=== PATIENT | female | born 1985 | race Caucasian/White ===

== ENCOUNTER 2018-02-24 15:16 | Inpatient (IN) ==
[2018-02-24 16:08] LABS: Basophils % 0.4 %; Eosinophils % 0.1 %; Hematocrit 37.5 % (35.3-44.9); Hemoglobin 13.3 g/dL (11.5-15.4); Immature Granulocytes % 0.3 % (0-4); Lymphocytes # 3.4 K/mcL (0.6-4.6); Lymphocytes % 49.4 %; Mean Corpuscular HGB Conc 35.5 g/dL (31.6-35.5); Mean Corpuscular Hemoglobin 33.1 pg (28.0-33.3); Mean Corpuscular Volume 93.3 fL (83.0-100.0); Mean Platelet Volume 9.9 fL (9.4-12.4); Monocytes # 0.3 K/mcL (0.0-1.3); Monocytes % 4.1 %; Neutrophils # 3.1 K/mcL (1.6-8.9); Platelet Count 292 K/mcL (140-400); Red Blood Count 4.02 M/mcL (3.82-4.97); Red Cell Distribution Width 13.9 % (11.5-14.5); Segmented Neutrophils % 45.7 %
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
[2018-02-24 16:20] LABS: Prothrombin Time 11.7 Seconds (9.4-12.1)
[2018-02-24 16:22] LABS: Activated Partial Thrombo Time 31.3 Seconds (26.0-36.0)
[2018-02-24 16:36] LABS: Troponin I < 0.03 ng/mL (< 0.04)
[2018-02-24 16:44] LABS: BUN/Creatinine Ratio 9 (6-26); Blood Urea Nitrogen 7 mg/dL (6-20); Calcium 10.1 mg/dL (8.6-10.3); Carbon Dioxide 21 mEq/L (23-29); Chloride 104 mEq/L (98-107); Glucose 127 mg/dL (70-105); Magnesium 1.6 mg/dL (1.6-2.6); Osmolality,Calculated 284 (280-300); Potassium 3.3 mEq/L (3.5-5.1); Sodium 137 mEq/L (136-145); eGFR For African Americans > 60 (> 60); eGFR For Non-African Americans > 60 (> 60)
[2018-02-24 16:49] LABS: Thyroid Stimulating Hormone 2.552 mcIU/mL (0.340-5.600)
[2018-02-24] MEDS ORDERED: Potassium Chloride Elixir 20 MEQ/15 ML UDC PO ONE (16:58)
[2018-02-24 16:59] LABS: Bilirubin,Urine Negative (Negative); Blood,Urine Negative (Negative); Clarity,Urine Clear (Clear); Color,Urine Yellow (Yellow); Glucose,Urine (UA) Normal (Normal); Ketones,Urine Negative (Negative); Leukocyte Esterase,Urine Negative (Negative); Nitrite,Urine Negative (Negative); Protein,Urine Negative (Neg-Trace); Specific Gravity,Urine 1.007 (1.010-1.025); Urobilinogen,Urine Normal (Normal)
[2018-02-24 17:18] LABS: Amphetamine Screen,Urine Negative ng/mL (Cutoff=1000); Barbiturate Screen,Urine Negative ng/mL (Cutoff=200); Benzodiazepines Screen,Urine Negative ng/mL (Cutoff=200); Cannabinoid Screen,Urine Positive ng/mL (Cutoff = 50); Cocaine Screen,Urine Negative ng/mL (Cutoff= 300); Opiate Screen,Urine Negative ng/mL (Cutoff=300); Phencyclidine Screen,Urine Negative ng/mL (Cutoff=25)
[2018-02-24] MEDS ORDERED: Magnesium Oxide 400 MG TABLET PO ONE (17:43)
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
[2018-02-24] MEDS ORDERED: Naloxone 0.4 MG/ML INJ IVP PRN (18:09)
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
[2018-02-24] MEDS ORDERED: Ondansetron ODT 4 MG TAB.RAPDIS PO PRN (20:52)
[2018-02-24] MEDS ORDERED: SUMAtriptan succinate 50 MG TABLET PO PRN (20:52)
[2018-02-24] MEDS ORDERED: NON-FORMULARY MEDICATION 1 EACH EACH (Quetiapine Fumarate [Seroquel] 800 MG) PO SCH (21:00)
[2018-02-24] MEDS: Gabapentin 300 MG CAPSULE PO SCH (22:03)
[2018-02-24] MEDS: Cholecalciferol (D-3) 1,000 UNIT TABLET PO SCH (22:03)
[2018-02-24] MEDS: traMADol 50 MG TABLET PO PRN (22:03)
[2018-02-24] MEDS ORDERED: Acetaminophen 325 MG TABLET PO PRN (23:02)
[2018-02-24] MEDS: Methocarbamol 500 MG TABLET PO SCH (23:19)
[2018-02-24] MEDS ORDERED: Nitroglycerin 0.4 MG TAB.SUBL SL PRN (23:40)
[2018-02-24] MEDS ORDERED: Nitroglycerin 0.4 MG TAB.SUBL SL ONE (23:41)
[2018-02-25] MEDS ORDERED: *HR* Adenosine 6 MG/2 ML VIAL IVP ONE ×5 (00:05→02:13)
[2018-02-25] MEDS ORDERED: Verapamil 5 MG/2 ML VIAL IVP ONE (00:37)
[2018-02-25] MEDS: Albuterol 2.5 MG/3 ML NEBULIZER IH SCH ×3 (01:32→20:04)
[2018-02-25] MEDS: Budesonide/Formoterol 160/4.5 MDI IH SCH ×3 (01:33→20:04)
[2018-02-25] MEDS: Ringers Solution, Lactated 1,000 ML IVC SCH ×2 (01:45→15:16)
--- NOTE | 2018-02-25 01:46 | Event Note ---
Date of Encounter: 02/25/18 Time of Encounter: 11:30 At about 11:40PM was alerted by nurse that patient's heart rate was 160, and I came to bedside immediately. EKG was ordered which showed SVT. Vagal maneuvers tried without success and lowering her HR. Rapid response was called. She was given adenosine 6 mg, patient's heart rate decreased to 120s showed sinus tachycardia but within 30 seconds went back up to HR 160s. BP was stable with a systolic of 132. She was given adenosine 12 mg and the same thing occurred. Dr. Lennon from Cardiology was called. In the meantime patient's heart rate did decrease to 120s for a couple of minutes then increased back to 160s. Cardiology recommended getting verapamil 5 mg which initially seemed to not help but after about 5-10 minutes she did decrease to 120s. She was given a 15mg cardizem bolus and started on a cardizem drip per cardiology's recommendation. Blood pressure remained stable throughout this event and last reported systolic BP after the cardizem bolus was 108. Patient was then transferred to the ICU overflow at about 1:30AM with a heart rate in the 120s.
[2018-02-25 04:45] LABS: Basophils % 0.4 %; Eosinophils % 0.3 %; Hematocrit 34.3 % (35.3-44.9); Hemoglobin 12.1 g/dL (11.5-15.4); Immature Granulocytes % 0.3 % (0-4); Lymphocytes # 2.9 K/mcL (0.6-4.6); Lymphocytes % 39.4 %; Mean Corpuscular HGB Conc 35.3 g/dL (31.6-35.5); Mean Corpuscular Hemoglobin 33.3 pg (28.0-33.3); Mean Corpuscular Volume 94.5 fL (83.0-100.0); Mean Platelet Volume 9.6 fL (9.4-12.4); Monocytes # 0.4 K/mcL (0.0-1.3); Monocytes % 6.1 %; Neutrophils # 3.9 K/mcL (1.6-8.9); Platelet Count 235 K/mcL (140-400); Red Blood Count 3.63 M/mcL (3.82-4.97); Red Cell Distribution Width 13.9 % (11.5-14.5); Segmented Neutrophils % 53.5 %
[2018-02-25 05:05] LABS: Troponin I < 0.03 ng/mL (< 0.04)
[2018-02-25 05:07] LABS: BUN/Creatinine Ratio 14 (6-26); Blood Urea Nitrogen 9 mg/dL (6-20); Calcium 9.4 mg/dL (8.6-10.3); Carbon Dioxide 24 mEq/L (23-29); Chloride 109 mEq/L (98-107); Chol/HDL Ratio 7.4 (0-4.9); Cholesterol 272 mg/dL (< 200); Glucose 91 mg/dL (70-105); HDL Cholesterol 37 mg/dL (40-59); LDL Cholesterol,Calculated 208 mg/dL (0-99); Osmolality,Calculated 286 (280-300); Potassium 3.7 mEq/L (3.5-5.1); Sodium 139 mEq/L (136-145); Triglycerides 134 mg/dL (< 150); eGFR For African Americans > 60 (> 60); eGFR For Non-African Americans > 60 (> 60)
[2018-02-25] MEDS: *HR* Heparin 5,000 UNIT/ML VIAL SQ SCH ×2 (05:43→17:53)
[2018-02-25] MEDS: traMADol 50 MG TABLET PO PRN ×2 (08:10→15:41)
[2018-02-25] MEDS: Multivit/Ca/Min/Fe/FA 1 TAB TABLET PO SCH (08:12)
[2018-02-25] MEDS: Acyclovir 200 MG CAPSULE PO SCH (08:12)
[2018-02-25] MEDS: Gabapentin 300 MG CAPSULE PO SCH ×3 (08:12→22:21)
[2018-02-25] MEDS: Cholecalciferol (D-3) 1,000 UNIT TABLET PO SCH (08:12)
[2018-02-25] MEDS ORDERED: NORETHINDRONE ETHINYL ESTRAD PO SCH (09:00)
[2018-02-25] MEDS ORDERED: levoFLOXacin 500 MG TABLET PO SCH (09:00)
[2018-02-25] MEDS ORDERED: (Omega-3/Dha/Epa/Fish Oil [Fish Oil 1,000 Mg Softgel] PO SCH (09:00)
--- NOTE | 2018-02-25 10:13 | Cardiology Consult Note ---
<Anthony Guevara - Last Filed: 02/25/18 10:13> Date of Encounter: 02/25/18 Time of Encounter: 10:13 Assessment and Plan Discussion w patient/family: The assessment and plan as outlined above was discussed with the patient and/or family members who expressed understanding and agreement. All questions were answered. Thank you for involving us in the care of your patient. Please call with any questions. History of Present Illness History of present illness: Ms. Lainez is a 32 year old female Past Med Surg Social Fam HX - Past Medical History Medical history: asthma, COPD, GERD, hyperlipidemia, migraine Additional medical history: Crohn's Psychiatric history: anxiety, bipolar, depression, PTSD - Past Surgical History Surgical History: breast surgery, cancer surgery Additional surgical history: Dental. IUD removed. cyst left groin - Social History Smoking Status: Current every day smoker Smokeless Tobacco Status: No Alcohol use: none Drug use: marijuana Medications and Allergies Norethindrone-Ethinyl Estrad [Ortho-Novum 1-35-28 Tablet] 1 each PO DAILY [History] Ondansetron HCl [Zofran] 4 mg PO TID PRN 01/28/17 [History] levoFLOXacin [Levaquin] 500 mg PO DAILY #9 tablet 02/22/18 [Rx] Acyclovir [Zovirax] 200 mg PO DAILY 02/24/18 [History] Albuterol Neb [Proventil Neb] 2.5 mg IH BID 02/24/18 [History] Albuterol Sulfate [Albuterol Inhaler] 2 puff IH Q4HR PRN 02/24/18 [History] Budesonide/Formoterol 160/4.5 [Symbicort 160/4.5] 2 puff IH BIDR 02/24/18 [ History] Ergocalciferol (VITAMIN D2) [Vitamin D2] 50,000 unit PO QWEEK 02/24/18 [History] Gabapentin [Neurontin] 900 mg PO TID 02/24/18 [History] Methocarbamol [Robaxin] 500 mg PO HS 02/24/18 [History] Montelukast [Singulair] 10 mg PO DAILY 02/24/18 [History] Multivitamin [One Daily Essential] 1 tab PO DAILY 02/24/18 [History] Naproxen [Naprosyn] 500 mg PO BID 02/24/18 [History] [place]-3/Dha/Epa/Fish Oil [Fish Oil 1,000 mg Softgel] 1 cap PO DAILY 02/24/18 [ History] Quetiapine Fumarate [Seroquel] 800 mg PO HS 02/24/18 [History] SUMAtriptan Succinate [Imitrex] 6 mg SQ DAILY PRN 02/24/18 [History] SUMAtriptan Succinate [Imitrex] 100 mg PO DAILY PRN 02/24/18 [History] Tramadol HCl [Ultram] 100 mg PO TID PRN 02/24/18 [History] 3 Allergy/AdvReac Type Severity Reaction Status Date / Time Erythromycin Base AdvReac Nausea Verified 02/24/18 18:24 latex AdvReac Hives Verified 02/24/18 18:24 All Systems Review: The remainder of the systems were reviewed and are negative Physical Examination Vital Signs, Last 4 Hours Temp Pulse Resp BP Pulse Ox 02/25/18 08:27 91 106/61 100 02/25/18 08:13 98.5 F 02/25/18 07:50 12 100 Results 02/25/18 04:27 02/25/18 04:27 Lab Results 02/24/18 02/25/18 02/25/18 21:51 00:27 04:27 WBC 7.3 Hgb 12.1 Hct 34.3 L Plt Count 235 Sodium Potassium Chloride Carbon Dioxide BUN Creatinine Glucose Calcium Magnesium Troponin I < 0.03 < 0.03 02/25/18 04:27 WBC Hgb Hct Plt Count Sodium 139 Potassium 3.7 Chloride 109 H Carbon Dioxide 24 BUN 9 Creatinine 0.65 Glucose 91 Calcium 9.4 Magnesium 2.0 Troponin I < 0.03 Consult Discharge Plan - Plan [facility]errals: [facility] Care Provider[facility] - <Douglas Funk - Last Filed: 02/25/18 10:52> Date of Encounter: 02/25/18 - Attending Attestation I examined this patient and my medical decision-making was reviewed with the Resident Physician. I agree with the documented findings, disposition and treatment plan as described except to the extent set forth below. Consulted for SVT. EKGs suggest sinus tachycardia. Would evaluate for secondary etiology. Could treat symptomatically with cardizem if no secondary causes found. Assessment and Plan Discussion w patient/family: The assessment and plan as outlined above was discussed with the patient and/or family members who expressed understanding and agreement. All questions were answered. Thank you for involving us in the care of your patient. Please call with any questions. History of Present Illness History of present illness: Ms. Lainez is a 32 year old female All Systems Review: The remainder of the systems were reviewed and are negative Physical Examination Vital Signs, Last 4 Hours Temp Pulse Resp BP Pulse Ox 02/25/18 08:27 91 106/61 100 02/25/18 08:13 98.5 F 02/25/18 07:50 12 100 Results 02/25/18 04:27 02/25/18 04:27 Lab Results 02/24/18 02/25/18 02/25/18 21:51 00:27 04:27 WBC 7.3 Hgb 12.1 Hct 34.3 L Plt Count 235 Sodium Potassium Chloride Carbon Dioxide BUN Creatinine Glucose Calcium Magnesium Troponin I < 0.03 < 0.03 02/25/18 04:27 WBC Hgb Hct Plt Count Sodium 139 Potassium 3.7 Chloride 109 H Carbon Dioxide 24 BUN 9 Creatinine 0.65 Glucose 91 Calcium 9.4 Magnesium 2.0 Troponin I < 0.03
--- NOTE | 2018-02-25 13:50 | Consult Note ---
Date of Encounter: 02/25/18 Time of Encounter: 13:44 Assessment & Recommendation (1) Generalized anxiety disorder Current visit: Yes Status: Acute Assessment & Recommendation: Would not change psych meds until cardiac diagnosis is clear. According to client she has not yet seen the Qm Consultant or gotten the results of her ultrasound. Suspect she has an underlying anxiety disorder in addition to whatever is going on with her medically. However, Seroquel seems to work for her normally. She can likely just return to this medication once her cardiac issues have been dealt with. Can assess her for a new medication as well but would not feel comfortable starting her on something new until the source of her tachycardia is found. Client denies SI/HI. No evidence of psychosis or major mood disturbance. Does not require inpatient psych. History of Present Illness Requesting Physician: Gaby Murphy MD Reason for consult: extreme anxiety History of present illness: Ms. Lainez is a 32 year old female who was admitted secondary to bouts of tachycardia and associated symptoms. 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 Diagnosis unclear. Awaiting Cardiology input and results of ultrasound. Currently takes 800mg of Seroquel for Bipolar Disorder. Client states this medication keeps her stabilized from a mental health prospective. However, client feels this medication is making her heart race faster. Has been on this medication at this dose for at least a year with no issues. Doubt it is a factor in current presentation but client states she is not comfortable taking it until she has a definitive diagnosis. Would not recommend starting any new psych meds either until she has a definitive diagnosis. Client denies SI/HI. No evidence of psychosis or thought disorder. No need for inpatient psych. Anxiety is definitely a factor but would only try to manage it with new medications after serious cardiac issues ruled out. CC: Gaby Murphy MD Past Med Surg Social Fam HX - Past Medical History Medical history: asthma, COPD, GERD, hyperlipidemia, migraine - Past Psychiatric History Psychiatric history: Reports: anxiety, bipolar Family psychiatric history: Unknown Family History of Suicide: Unknown - Past Surgical History Surgical History: breast surgery, cancer surgery - Social History Smoking Status: Current every day smoker Smokeless Tobacco Status: No Alcohol use: none Drug use: marijuana Medications & Allergies Norethindrone-Ethinyl Estrad [Ortho-Novum 1-35-28 Tablet] 1 each PO DAILY [History] Ondansetron HCl [Zofran] 4 mg PO TID PRN 01/28/17 [History] levoFLOXacin [Levaquin] 500 mg PO DAILY #9 tablet 02/22/18 [Rx] Acyclovir [Zovirax] 200 mg PO DAILY 02/24/18 [History] Albuterol Neb [Proventil Neb] 2.5 mg IH BID 02/24/18 [History] Albuterol Sulfate [Albuterol Inhaler] 2 puff IH Q4HR PRN 02/24/18 [History] Budesonide/Formoterol 160/4.5 [Symbicort 160/4.5] 2 puff IH BIDR 02/24/18 [ History] Ergocalciferol (VITAMIN D2) [Vitamin D2] 50,000 unit PO QWEEK 02/24/18 [History] Gabapentin [Neurontin] 900 mg PO TID 02/24/18 [History] Methocarbamol [Robaxin] 500 mg PO HS 02/24/18 [History] Montelukast [Singulair] 10 mg PO DAILY 02/24/18 [History] Multivitamin [One Daily Essential] 1 tab PO DAILY 02/24/18 [History] Naproxen [Naprosyn] 500 mg PO BID 02/24/18 [History] [place]-3/Dha/Epa/Fish Oil [Fish Oil 1,000 mg Softgel] 1 cap PO DAILY 02/24/18 [ History] Quetiapine Fumarate [Seroquel] 800 mg PO HS 02/24/18 [History] SUMAtriptan Succinate [Imitrex] 6 mg SQ DAILY PRN 02/24/18 [History] SUMAtriptan Succinate [Imitrex] 100 mg PO DAILY PRN 02/24/18 [History] Tramadol HCl [Ultram] 100 mg PO TID PRN 02/24/18 [History] 3 Allergy/AdvReac Type Severity Reaction Status Date / Time Erythromycin Base AdvReac Nausea Verified 02/24/18 18:24 latex AdvReac Hives Verified 02/24/18 18:24 Review of Systems Constitutional: Denies: fever, chills, weakness, weight change Eyes: Denies: eye pain, vision change Ears, Nose, Throat: Denies: ear pain, throat pain, dental pain, hearing loss, congestion Cardiovascular: Reports: palpitations Respiratory: Denies: cough, dyspnea, wheezes Gastrointestinal: Denies: abdominal pain, nausea, vomiting, diarrhea, constipation Genitourinary female: Denies: urgency, dysuria, frequency, abnormal menses, dyspareunia Musculoskeletal: Denies: joint swelling, joint pain Integumentary: Denies: rash, lesions, pruritus Neurological: Denies: headache, weakness, numbness, memory loss Endocrine: Denies: fatigue, heat or cold intolerance Hematologic/Lymphatic: Denies: easy bruising, lymphadenopathy Allergic/Immunologic: Denies: urticaria, itchy eyes Psychiatry Exam - Constitutional Vitals: Temp Pulse Resp BP Pulse Ox 98.1 F 86 14 114/71 98 02/25/18 11:42 02/25/18 13:00 02/25/18 13:00 02/25/18 13:00 02/25/18 13:00 General appearance: age & developmentally appropriate, well-groomed, well- nourished - Musculoskeletal Gait: normal Station: relaxed Strength & Tone: normal for patient - Psychiatric Patient Orientation: Yes Person, Yes Time, Yes Place Level of alertness: Alert Behavior: calm, cooperative Psychomotor activity: Normal Eye Contact: Maintains Eye Contact Mood Description: Anxious Affect description: congruent with mood Speech Volume: Normal Speech pattern: normal rate, normal rhythm, normal tone, fluent, spontaneous Language & Vocabulary: consistent with education Thought Process: Linear, Goal Oriented Thought Content: No Suicidal ideation, No Homicidal ideation, No Overt delusions Perceptual Disturbances: No Auditory hallucinations, No Visual hallucinations Attention Span Ability: Capable of Focused Attention Memory Description: Grossly Intact Patient Reliability: Reliable Historian Fund of knowledge: Yes abstraction ability, Yes aware of current events Intelligence Estimate: Average Judgment: Fair Insight: Partial Results - Labs Labs: Laboratory Last Values WBC 7.3 K/mcL (4.3-11.1) 02/25/18 04:27 RBC 3.63 M/mcL (3.82-4.97) L 02/25/18 04:27 Hgb 12.1 g/dL (11.5-15.4) 02/25/18 04:27 Hct 34.3 % (35.3-44.9) L 02/25/18 04:27 MCV 94.5 fL (83.0-100.0) 02/25/18 04:27 MCH 33.3 pg (28.0-33.3) 02/25/18 04:27 MCHC 35.3 g/dL (31.6-35.5) 02/25/18 04:27 RDW 13.9 % (11.5-14.5) 02/25/18 04:27 Plt Count 235 K/mcL (140-400) 02/25/18 04:27 MPV 9.6 fL (9.4-12.4) 02/25/18 04:27 Immature Gran % 0.3 % (0-4) 02/25/18 04:27 Seg Neutrophils % 53.5 % 02/25/18 04:27 Lymphocytes % 39.4 % 02/25/18 04:27 Monocytes % 6.1 % 02/25/18 04:27 Eosinophils % 0.3 % 02/25/18 04:27 Basophils % 0.4 % 02/25/18 04:27 Neutrophils # 3.9 K/mcL (1.6-8.9) 02/25/18 04:27 Lymphocytes # 2.9 K/mcL (0.6-4.6) 02/25/18 04:27 Monocytes # 0.4 K/mcL (0.0-1.3) 02/25/18 04:27 Eosinophils # 0.0 K/mcL (0.0-0.6) 02/25/18 04:27 Basophils # 0.0 K/mcL (0.0-0.2) 02/25/18 04:27 PT 11.7 Seconds (9.4-12.1) 02/24/18 15:30 INR 1.0 02/24/18 15:30 APTT 31.3 Seconds (26.0-36.0) 02/24/18 15:30 D-Dimer 1054 ng/mLFEU (0-500) H 02/24/18 15:30 Sodium 139 mEq/L (136-145) 02/25/18 04:27 Potassium 3.7 mEq/L (3.5-5.1) 02/25/18 04:27 Chloride 109 mEq/L (98-107) H 02/25/18 04:27 Carbon Dioxide 24 mEq/L (23-29) 02/25/18 04:27 BUN 9 mg/dL (6-20) 02/25/18 04:27 Creatinine 0.65 mg/dL (0.60-1.20) 02/25/18 04:27 Est GFR ( Amer) > 60 (> 60) 02/25/18 04:27 Est GFR (Non-Af Amer) > 60 (> 60) 02/25/18 04:27 BUN/Creatinine Ratio 14 (6-26) 02/25/18 04:27 Glucose 91 mg/dL (70-105) 02/25/18 04:27 POC Glucose 116 mg/dL (70-99) H 02/25/18 01:14 Calculated Osmolality 286 (280-300) 02/25/18 04:27 Calcium 9.4 mg/dL (8.6-10.3) 02/25/18 04:27 Magnesium 2.0 mg/dL (1.6-2.6) 02/25/18 04:27 Troponin I < 0.03 ng/mL (< 0.04) 02/25/18 04:27 Triglycerides 134 mg/dL (< 150) 02/25/18 04:27 Cholesterol 272 mg/dL (< 200) H 02/25/18 04:27 LDL Cholesterol, Calc 208 mg/dL (0-99) H 02/25/18 04:27 VLDL Cholesterol, Calc 27 mg/dL (< 31) 02/25/18 04:27 HDL Cholesterol 37 mg/dL (40-59) L 02/25/18 04:27 Cholesterol/HDL Ratio 7.4 (0-4.9) H 02/25/18 04:27 TSH 2.552 mcIU/mL (0.340-5.600) 02/24/18 15:30 Urine Color Yellow (Yellow) 02/24/18 16:45 Urine Clarity Clear (Clear) 02/24/18 16:45 Urine pH 7.0 pH Units (5.0-8.0) 02/24/18 16:45 Ur Specific [place] 1.007 (1.010-1.025) L 02/24/18 16:45 Urine Protein Negative mg/dL (Neg-Trace) 02/24/18 16:45 Urine Glucose (UA) Normal mg/dL (Normal) 02/24/18 16:45 Urine Ketones Negative mg/dL (Negative) 02/24/18 16:45 Urine Blood Negative (Negative) 02/24/18 16:45 Urine Nitrite Negative (Negative) 02/24/18 16:45 Urine Bilirubin Negative (Negative) 02/24/18 16:45 Urine Urobilinogen Normal mg/dL (Normal) 02/24/18 16:45 Ur Leukocyte Esterase Negative (Negative) 02/24/18 16:45 Ur Culture Indicated? NO (NO) 02/24/18 16:45 Urine Opiates Screen Negative ng/mL (Zpfflb=526) 02/24/18 16:45 Ur Barbiturates Screen Negative ng/mL (Nlnpel=850) 02/24/18 16:45 Ur Phencyclidine Scrn Negative ng/mL (Cutoff=25) 02/24/18 16:45 Ur Amphetamines Screen Negative ng/mL (Hcdgkq=8895) 02/24/18 16:45 U Benzodiazepines Scrn Negative ng/mL (Mlzvnk=111) 02/24/18 16:45 Urine Cocaine Screen Negative ng/mL (Cutoff= 300) 02/24/18 16:45 U Marijuana (THC) Screen Positive ng/mL (Cutoff = 50) H 02/24/18 16:45 Ur Drug Screen Interp See Below 02/24/18 16:45 Consult Discharge Plan - Plan [facility]errals: [facility] [Primary Care Provider] -
--- NOTE | 2018-02-25 15:45 | Electrocardiograph Report ---
[address] [place], [place] [address] Test Date: 2018-02-24 Pat Name: Claudia Lainez Department: 104 Room: 12 Gender: F [employer]: KRISTY : 1985 Requested By: Calin Bowser Order Number: [id number] Reading MD: Douglas Funk Measurements Intervals [place] Rate: 117 P: 75 ME: 127 QRS: 61 QRSD: 90 T: 22 QT: 309 QTc: 379 Interpretive Statements SINUS TACHYCARDIA POSSIBLE LEFT ATRIAL ENLARGEMENT NONSPECIFIC T-WAVE ABNORMALITY ABNORMAL RHYTHM ECG Electronically Signed On 02-25-2018 15:44:02 EDT by Douglas Funk
--- NOTE | 2018-02-25 17:00 | Internal Med Progress Note ---
Date of Encounter: 02/25/18 Time of Encounter: 09:00 - Assessment and plan (1) Tachycardia Current Visit: Yes Status: Acute Assessment and plan: Rapid response was called last night for suspected supraventricular tachycardia , patient received adenosine with no improvement in heart rate, subsequently started on IV Cardizem drip on cardiology recommendation. Heart rate is currently improved, in low to high 90s. Off IV Cardizem drip. Patient will probably benefit from beta nathan. Continue IV hydration. TSH noted to be normal. Cardiology consult appreciated, no further recommendations as patient is noted to have sinus tachycardia. Follow-up echocardiogram. Patient is noted to be extremely anxious, she likely has generalized anxiety disorder, inappropriately treated. We will consult psychiatry. Urine drug screen positive for marijuana. (2) Chest pain Current Visit: Yes Status: Acute Assessment and plan: Improving. Likely related to tachycardia. Serial troponins negative. Qualifiers: Chest pain type: unspecified Qualified Code(s): R07.9 - Chest pain, unspecified (3) PTSD (post-traumatic stress disorder) Current Visit: Yes Status: Chronic (4) Bipolar disorder Current Visit: Yes Status: Chronic Assessment and plan: Continue home medications. Qualifiers: Active/Remission status: remission status unspecified Qualified Code(s): F31.9 - Bipolar disorder, unspecified (5) Tobacco abuse Current Visit: Yes Status: Chronic (6) Generalized anxiety disorder Current Visit: Yes Status: Chronic (7) Hypokalemia Current Visit: Yes Status: Resolved (8) Pneumonia Current Visit: Yes Status: Ruled-out Assessment and plan: Chest x-ray shows no acute infiltrates. No cough, fever, leukocytosis. We will hold antibiotics for now. Qualifiers: Pneumonia type: due to unspecified organism Laterality: unspecified laterality Lung location: unspecified part of lung Qualified Code(s): J18.9 - Pneumonia, unspecified organism - Time Spent With Patient Total time spent is greater than 50% in coordination of care (as documented) at patient's floor/unit and/or counseling patient: - Subjective Interval history: Noted to be very anxious and trembling; reports palpitations and chest discomfort even with sitting up; her HR is only controlled at rest; no cough, shortness of breath, - Constitutional Vitals: Temp Pulse Resp BP Pulse Ox 98.6 F 87 18 110/73 98 02/25/18 15:56 02/25/18 14:00 02/25/18 14:00 02/25/18 14:00 02/25/18 14:00 General appearance: Present: mild distress, A&O X 3, answers questions appropriately - Respiratory Respiratory exam: Present: CTAB. Absent: accessory muscle use, rales, rhonchi, wheezes - Cardiovascular Cardiovascular exam: Present: RRR, +S1, +S2, tachycardia. Absent: diastolic murmur, gallop, rubs, systolic murmur - GI/Abdominal GI/Abdominal exam: Present: normal bowel sounds, soft, no peritoneal signs. Absent: distended, tenderness - Extremities Exam Extremities exam: Present: full ROM, warm, radial pulses palpable and symmetrical. Absent: calf tenderness, cyanotic, pedal edema - Neurological Exam Neurological exam: Present: CN II-XII intact, oriented X3, no focal deficits. Absent: pronater drift, facial droop, speech deficit Internal Medicine: Result - Labs CBC & Chem 7: 02/25/18 04:27 02/25/18 04:27 Labs: Short CBC 02/25/18 Range/Units 04:27 WBC 7.3 (4.3-11.1) K/mcL Hgb 12.1 (11.5-15.4) g/dL Hct 34.3 L (35.3-44.9) % Plt Count 235 (140-400) K/mcL Neutrophils # 3.9 (1.6-8.9) K/mcL BMP 02/25/18 04:27 Sodium 139 Potassium 3.7 Chloride 109 H Carbon Dioxide 24 BUN 9 Creatinine 0.65 Glucose 91 Calcium 9.4 Cardiac Enzymes 02/24/18 02/25/18 02/25/18 Range/Units 21:51 00:27 04:27 Troponin I < 0.03 < 0.03 < 0.03 (< 0.04) ng/mL - ABG Interpretation ABG results: PT/INR, D-dimer PT 11.7 Seconds (9.4-12.1) 02/24/18 15:30 D-Dimer 1054 ng/mLFEU (0-500) H 02/24/18 15:30 - Impressions Impressions Echocardiogram 02/25/18 08:00 Impressions: LVEF 65%. Normal LV chamber size, wall thickness and function. Normal left ventricular diastolic function. Normal right ventricular structure and function. No evidence of pulmonary hypertension. No significant valvular dysfunction. Left Ventricular Wall Motion: Rest Echo Findings All wall segments showed normal motion. Findings: Study Quality * Technically adequate exam. ECG Findings * Normal sinus rhythm. Left Ventricle * LVEF 65%. * Normal LV chamber size, wall thickness and function. * Normal left ventricular diastolic function. Right Ventricle * Normal right ventricular structure and function. Left Atrium * Normal left atrial size. Right Atrium * Normal right atrial size. Aortic Valve * Aortic valve not well visualized. * No aortic regurgitation. * No aortic stenosis. Mitral Valve * Normal mitral valve structure and function. * No mitral regurgitation. * No mitral stenosis. Tricuspid Valve * Normal tricuspid valve structure and function. * Trace tricuspid regurgitation. * No evidence of pulmonary hypertension. Pulmonic Valve * Pulmonic valve is not well visualized. * No pulmonic regurgitation. Aorta * Normally sized aortic root. Pericardium * The pericardium appears normal. IVC * Normal IVC dimensions and inspiratory collapse. Pulmonary Artery * Normal visualized portions of the main pulmonary artery. - VTE Documentation of Mechanical Device: Venous foot pump, device Consult Discharge Plan - Plan [facility]errals: [facility] [Primary Care Provider] -
[2018-02-25] MEDS ORDERED: *HR* Metoprolol 5 MG/5 ML VIAL IVP PRN (17:13)
[2018-02-25] MEDS ORDERED: traMADol 50 MG TABLET PO PRN (17:50)
[2018-02-25] MEDS ORDERED: *HR* OxyCODONE Immed Rel 5 MG TABLET PO PRN (17:50)
[2018-02-25] MEDS: Nicotine 21 MG PATCH.TD24 TD SCH (18:38)
[2018-02-25] MEDS: Methocarbamol 500 MG TABLET PO SCH (22:22)
[2018-02-26] MEDS: Ringers Solution, Lactated 1,000 ML IVC SCH (06:31)
[2018-02-26] MEDS: *HR* Heparin 5,000 UNIT/ML VIAL SQ SCH (06:31)
[2018-02-26 06:45] LABS: BUN/Creatinine Ratio 12 (6-26); Blood Urea Nitrogen 9 mg/dL (6-20); Calcium 9.1 mg/dL (8.6-10.3); Carbon Dioxide 25 mEq/L (23-29); Chloride 107 mEq/L (98-107); Glucose 87 mg/dL (70-105); Osmolality,Calculated 286 (280-300); Potassium 3.8 mEq/L (3.5-5.1); Sodium 139 mEq/L (136-145); eGFR For African Americans > 60 (> 60); eGFR For Non-African Americans > 60 (> 60)
[2018-02-26 07:52] VITALS: BP 95/58
[2018-02-26] MEDS: Gabapentin 300 MG CAPSULE PO SCH (08:36)
[2018-02-26] MEDS: Acyclovir 200 MG CAPSULE PO SCH (08:36)
[2018-02-26] MEDS: Cholecalciferol (D-3) 1,000 UNIT TABLET PO SCH (08:36)
[2018-02-26] MEDS: Nicotine 21 MG PATCH.TD24 TD SCH (08:37)
[2018-02-26] MEDS: Multivit/Ca/Min/Fe/FA 1 TAB TABLET PO SCH (08:37)
--- NOTE | 2018-02-26 09:50 | Discharge Summary ---
- NOTES TO OUTPATIENT PROVIDER Notes to Outpatient Provider: Palpitations, probably secondary to anxiety and ? Seroquel; cardiac etiology ruled out; needs close outpatient Psychiatry f/up; Date of Encounter: 02/26/18 Time of Encounter: 09:48 - Discharge Diagnosis (1) Tachycardia Priority: Primary Status: Acute (2) Chest pain Priority: Primary Status: Acute Qualifiers: Chest pain type: unspecified Qualified Code(s): R07.9 - Chest pain, unspecified (3) PTSD (post-traumatic stress disorder) Priority: Secondary Status: Chronic (4) Bipolar disorder Priority: Secondary Status: Chronic Qualifiers: Active/Remission status: remission status unspecified Qualified Code(s): F31.9 - Bipolar disorder, unspecified (5) Tobacco abuse Priority: Secondary Status: Chronic (6) Generalized anxiety disorder Priority: Secondary Status: Chronic (7) Hypokalemia Priority: Primary Status: Resolved (8) Pneumonia Priority: Primary Status: Ruled-out Qualifiers: Pneumonia type: due to unspecified organism Laterality: unspecified laterality Lung location: unspecified part of lung Qualified Code(s): J18.9 - Pneumonia, unspecified organism Hospital course: Ms. Lainez is a 32 year old female with significant psychiatric history including PTSD, bipolar disorder, generalized anxiety disorder, was admitted with significant chest discomfort and palpitations. She was noted to have tachycardia, which was initially thought to be SVT, she did not respond to adenosine, subsequently started on IV Cardizem drip and transferred to ICU. Cardiology was consulted, telemetry was reviewed and patient was deemed to be having sinus tachycardia. Heart rate was eventually well controlled and she was taken off IV Cardizem drip. Initial labs including TSH were noted to be normal. Echocardiogram showed preserved ejection fraction, no acute abnormality. Psychiatry was consulted, recommended to continue patient's home Seroquel, further medications could be added after cardiac causes were ruled out. Patient is concerned about high-dose of Seroquel causing her tachycardia and palpitations, however she declines reevaluation by psychiatry and she would like to follow-up with established psychiatry at [facility]. She is otherwise medically stable for discharge home. Discharge discussed with: patient, family - Time Spent with Patient Total time spent providing and/or coordinating discharge services: Greater than 30 minutes (40 min) - Discharge Medications Home Medications: Norethindrone-Ethinyl Estrad [Ortho-Novum 1-35-28 Tablet] 1 each PO DAILY [History] Ondansetron HCl [Zofran] 4 mg PO TID PRN 01/28/17 [History] Acyclovir [Zovirax] 200 mg PO DAILY 02/24/18 [History] Albuterol Neb [Proventil Neb] 2.5 mg IH BID 02/24/18 [History] Albuterol Sulfate [Albuterol Inhaler] 2 puff IH Q4HR PRN 02/24/18 [History] Budesonide/Formoterol 160/4.5 [Symbicort 160/4.5] 2 puff IH BIDR 02/24/18 [ History] Ergocalciferol (VITAMIN D2) [Vitamin D2] 50,000 unit PO QWEEK 02/24/18 [History] Gabapentin [Neurontin] 900 mg PO TID 02/24/18 [History] Methocarbamol [Robaxin] 500 mg PO HS 02/24/18 [History] Montelukast [Singulair] 10 mg PO DAILY 02/24/18 [History] Multivitamin [One Daily Essential] 1 tab PO DAILY 02/24/18 [History] Naproxen [Naprosyn] 500 mg PO BID 02/24/18 [History] Ward-3/Dha/Epa/Fish Oil [Fish Oil 1,000 mg Softgel] 1 cap PO DAILY 02/24/18 [ History] Quetiapine Fumarate [Seroquel] 800 mg PO HS 02/24/18 [History] SUMAtriptan Succinate [Imitrex] 6 mg SQ DAILY PRN 02/24/18 [History] SUMAtriptan Succinate [Imitrex] 100 mg PO DAILY PRN 02/24/18 [History] Tramadol HCl [Ultram] 100 mg PO TID PRN 02/24/18 [History] Lidocaine Patch [Lidoderm 5% patch] 3 each TP DAILY 02/25/18 [History] Oxycodone HCl [Oxaydo] 5 mg PO Q8HR 02/25/18 [History] Tramadol HCl [Ultram] 100 mg PO TID PRN 02/25/18 [History] Allergies/Adverse Reactions: 3 Allergy/AdvReac Type Severity Reaction Status Date / Time Erythromycin Base AdvReac Nausea Verified 02/26/18 16:06 latex AdvReac Hives Verified 02/26/18 16:06 Date of admission: 02/25/18 17:56 Primary care physician: [facility] Discharging clinician: Gaby Murphy Anticipated date of discharge: 02/26/18 - Constitutional Vitals: Temp Pulse Resp BP Pulse Ox 97.8 F 86 15 95/58 99 02/26/18 07:51 02/26/18 07:51 02/26/18 07:51 02/26/18 07:51 02/26/18 07:51 General appearance: Present: A&O X 3, answers questions appropriately - Cardiovascular Cardiovascular exam: Present: RRR, +S1, +S2. 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 Office is closed today, please schedule appointment on Wednesday. - Diet and Activity Activity: resume usual activities as tolerated Diet: advance to your usual diet, regular diet - VTE Documentation of Mechanical Device: Venous foot pump, device
[2018-02-26] MEDS: Budesonide/Formoterol 160/4.5 MDI IH SCH (10:06)
[2018-02-26] MEDS: Albuterol 2.5 MG/3 ML NEBULIZER IH SCH (10:06)
--- NOTE | 2018-02-26 11:19 | Electrocardiograph Report ---
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
--- NOTE | 2018-02-26 11:31 | Electrocardiograph Report ---
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
== END 2018-02-26 11:55 | disposition home or self-care (01) | DRG 880 ==
LOC: EMEROO 15:16 → 2NENU 15:16 → SUATTDRO 18:39 → 2NENU 19:36 → ICNU 02-25 01:16 → 2NENU 02-25 21:55
PROVIDERS: ADMIT Internal Medicine; ATTEND Internal Medicine